=== PATIENT | male | born 1970 | race Caucasian/White ===

== ENCOUNTER 2017-04-15 05:06 | Emergency (ER) | payer OTHER ==
[~2017-04-15 05:06] MED LIST: ALBUTEROL17 GM INH; ASPIRIN PO; BACTRIM DS TABL1 TA2 PO; COLCRYS0.6 MG PO; ERY-TAB500 MG PO; ERYC250 MG PO; HYDROCODONE-APA1 T30 PO; IBUPROFEN PO; IBUPROFEN800 MG PO; INDOCIN PO; INDOCIN SR75 MG PO; INDOMETHACIN PO; INDOMETHACIN25 MG; INDOMETHACIN50 MG PO; LOPID600 MG PO; LORTAB 7.5-5001 TAB PO; MEDROL DOSEPAK4 MG PO; MEDROL PO; NAPROSYN500 MG PO; NO MEDICATIONS; PREDNISONE50 MG PO; PRINIVIL40 MG PO; ROBAXIN 750750 M1 PO; ROBAXIN500 MG PO; SUDAFED60 MG PO; TYLENOL #3 PO; TYLOX 5/500 CAP1 CAP PO; ULTRAM PO; VICODIN 5/500 T1 TAB PO; VOLTAREN75 MG PO; ZOFRAN PO; ZYLOPRIM PO; ZYLOPRIM100 MG
== END 2017-04-15 07:27 | disposition home or self-care (01) ==
LOC: SED 05:06
DX: M10.9 Gout, unspecified (principal)
CPT/HCPCS: 96372; 96374; 96375; 99283; J1170; J1885; J2270; J2930

== ENCOUNTER 2017-06-20 10:31 | Emergency (ER) | payer OTHER ==
--- NOTE | ~2017-06-20 | CR20 ---
[facility] A Service of [facility] RADIOLOGY TEXT RESULTS PATIENT: MARTINA ANDRADE LOCATION: SED : 74 UNIT #: [id number] AGE: [address]: Marjorie Martinez SEX: M ORDER DR: [id number] [place] [id number] E MR#: [id number] Acc #: [id number] NAME: MARTINA ANDRADE : 1970 SEX: M STUDY DATE/TIME: 06/20/2017 UNIT: SED ROOM: STUDY DESCRIPTION: CR Ankle Min 3 Views Lt Attending Physician: Marjorie Martinez Pa-C Ordering Physician: Marjorie Martinez Pa-C Primary Care Physician: No Primary Care Physician MEDICAL IMAGING REPORT This report is preliminary unless electronic signature is present. EXAM Left ankle 3 views 06/20/2017 1057 hours HISTORY 46-year-old man with history of gout complaining of acute onset of ankle pain at 4 a.m. today. No known injury. COMPARISON 12/04/2014 FINDINGS AP, lateral and oblique views demonstrate prior fracture with ORIF of the distal fibula. There is soft tissue swelling lateral to the distal fibula with no underlying fracture. There is a well corticated ossicle adjacent to the tip of the medial malleolus, unchanged. IMPRESSION 1. No acute fracture or dislocation. There is lateral greater than medial soft tissue swelling. 2. Prior fracture with ORIF of distal fibula unchanged from 12/04/2014. Dictated by... Elaine Moreira M.D. THIS IS AN ELECTRONICALLY VERIFIED REPORT Elaine Moreira M.D. at 06/20/2017 7:10 PM [place]/richard TD: 06/20/2017 14:43 JOB #: [id number] [facility] A Service of [facility] RADIOLOGY TEXT RESULTS PATIENT: MARTINA ANDRADE LOCATION: SED : 72 UNIT #: [id number] AGE: [address]: Marjorie Martinez PAC SEX: M ORDER DR: MEDICAL IMAGING REPORT Page 1 of 1
[2017-06-20] MEDS ORDERED: NO MEDICATIONS (10:33)
== END 2017-06-20 11:50 | disposition home or self-care (01) ==
LOC: SED 10:31
DX: M25.572 Pain in left ankle and joints of left foot (principal); I10 Essential (primary) hypertension
CPT/HCPCS: 73610; 99283

== ENCOUNTER 2017-07-03 03:41 | Emergency (ER) | payer OTHER ==
[~2017-07-03] VITALS: Ht 182.9 cm; Wt 90.7 kg
--- NOTE | ~2017-07-03 | CR173 ---
[facility] A Service of [facility] RADIOLOGY TEXT RESULTS PATIENT: MARTINA ANDRADE LOCATION: SED : 74 UNIT #: [id number] AGE: [address]: Christiano Farooq MD SEX: M ORDER DR: [id number] [place] [id number] E MR#: [id number] Acc #: [id number] NAME: MARTINA ANDRADE : 1970 SEX: M STUDY DATE/TIME: 07/03/2017 4:05 UNIT: SED ROOM: STUDY DESCRIPTION: CR Knee 3 Views Rt Attending Physician: Christiano Farooq M.D. Ordering Physician: Christiano Farooq M.D. Primary Care Physician: Primary Care Physician No MEDICAL IMAGING REPORT This report is preliminary unless electronic signature is present. EXAM Right knee series INDICATION Right knee pain after a fall today. PROCEDURE 3 views of the right knee. COMPARISON None FINDINGS Previous ACL surgery. Moderate sized joint effusion. There is no acute fracture. IMPRESSION 1. Moderate sized joint effusion. 2. No acute bony injury. 3. Previous ACL surgery. Dictated by... David Sandoval M.D. THIS IS AN ELECTRONICALLY VERIFIED REPORT David Sandoval M.D. at 07/03/2017 10:01 PM [place] TD: 07/03/2017 08:42 JOB #: [id number] MEDICAL IMAGING REPORT [facility] A Service of [facility] RADIOLOGY TEXT RESULTS PATIENT: MARTINA ANDRADE LOCATION: SED : 74 UNIT #: [id number] AGE: [address]: Christiano Farooq MD SEX: M ORDER DR: Page 1 of 1
[2017-07-03] MEDS ORDERED: LISINOPRIL20 MG (03:49)
== END 2017-07-03 05:02 | disposition home or self-care (01) ==
LOC: SED 03:41
DX: S83.91XA Sprain of unspecified site of right knee, initial encounter (principal); M10.9 Gout, unspecified; I10 Essential (primary) hypertension; Z88.0 Allergy status to penicillin; Z79.899 Other long term (current) drug therapy; X50.1XXA Overexertion from prolonged static or awkward postures, initial encounter; Y92.9 Unspecified place or not applicable
CPT/HCPCS: 29530; 73562; 99283